=== PATIENT | female | born 1950 | race Caucasian/White ===

== ENCOUNTER 2019-08-14 02:14 | Emergency (ER) | payer MEDICARE, BC ==
[~2019-08-14] VITALS: Ht 157.5 cm; Wt 81.6 kg
--- NOTE | 2019-08-14 03:06 | NUR ---
CALLED PT IN WAITING ROOM. NO RESPONSE.
[2019-08-14 03:43] VITALS: BP 198/106
--- NOTE | 2019-08-14 03:43 | NUR ---
PT LORI C/C L SIDED FLANK PAIN SINCE 1AM, -DYSURIA, +HEMATURIA, "I THINK I PASSED ONE BUT THERE'S STILL PAIN". PT AMBULATORY WITH STEADY GAIT. RESP EVEN AND UNLABORED. PT ABLE TO PROVIDE URINE. PT ON MONITOR IN BED 11 WITH AT BEDSIDE. WILL CONTINUE TO MONITOR.
[2019-08-14] MEDS ORDERED: IV NS 0.9% 1,000 ML BAG IV ONE (04:00)
[2019-08-14] MEDS ORDERED: MORPHINE SULFATE INJ 2 MG/ML DISP.SYRIN IV ONE (04:00)
[2019-08-14] MEDS ORDERED: ONDANSETRON HCL/PF 4 MG/2 ML VIAL IVP ONE (04:00)
--- NOTE | 2019-08-14 04:00 | NUR ---
Shay grady in ED - 08/14/19 at 0406 by MADHU PT TAKEN TO RADIOLOGY VIA [facility]
[2019-08-14 04:01] LABS: APPEARANCE,URINE Slightly Cloudy (CLEAR); BILIRUBIN,URINE Negative (NEGATIVE); BLOOD, URINE Large Ery/uL (NEGATIVE); COLOR,URINE Yellow (YELLOW); KETONES,URINE Negative (NEGATIVE); LEUKOCYTE ESTERASE ,URINE Negative (NEGATIVE); NITRITE, URINE Negative (NEGATIVE); PH,URINE 8.5 (5.0-8.0); PROTEIN,URINE Negative (NEGATIVE); UGLUCOSE Negative (NEGATIVE); UROBILINOGEN,URINE 0.2 EU/dL (0.2)
--- NOTE | 2019-08-14 04:01 | NUR ---
BLOOD DRAWN AND GIVEN TO PHLEB
[2019-08-14] MEDS ORDERED: ONDANSETRON HCL/PF 4 MG/2 ML VIAL ONE (04:03)
[2019-08-14] MEDS ORDERED: MORPHINE SULFATE INJ 4 MG/ML DISP.SYRIN ONE (04:03)
[2019-08-14 04:06] LABS: BASOPHILS # (AUTO) 0.1 /CMM (0.0-0.2); BASOPHILS % (AUTO) 0.6 % (0.0-2.0); EOSINOPHILS % (AUTO) 0.4 % (0.0-6.0); HEMATOCRIT 42 % (33-45); LYMPHOCYTES # (AUTO) 1.3 /CMM (0.8-4.8); LYMPHOCYTES % (AUTO) 11.7 % (20.0-44.0); MEAN CORPUSCULAR HGB CONC 33 g/dl (31.0-36.0); MEAN CORPUSCULAR VOLUME 86 fL (82-100); MONOCYTES # (AUTO) 0.4 /CMM (0.1-1.30); MONOCYTES % (AUTO) 3.2 % (2.0-12.0); NEUTROPHILS # (AUTO) 9.3 /CMM (1.8-8.9); NEUTROPHILS % (AUTO) 84.1 % (43.0-81.0); PLATELET COUNT (AUTO) 254 /CMM (150-450); RED BLOOD CELL COUNT(AUTO) 4.86 MIL/uL (4.0-5.2)
--- NOTE | 2019-08-14 04:06 | NUR ---
PT TAKEN TO RADIOLOGY VIA [facility]
[2019-08-14 04:13] LABS: CALCIUM, SERUM 9.6 mg/dL (8.5-10.1); CREATININE 0.9 mg/dL (0.6-1.3); POTASSIUM 3.6 mmol/L (3.5-5.1)
--- NOTE | 2019-08-14 04:16 | NUR ---
PT RETURNED FROM RADIOLOGY. PT TOLERATED WELL.
[2019-08-14 05:23] LABS: BACTERIA,URINE None seen /HPF (None Seen); RBC,URINE 21-50 /HPF (0-2); SQUAMOUS EPITHELIAL CELL,UR Few /HPF (None Seen); WBC,URINE 0-2 /HPF (0-3)
--- NOTE | 2019-08-14 06:08 | NUR ---
IV removed. Catheter intact and site benign. Pressure and 4x4 applied to site. No bleeding noted.Patient discharged to home in stable condition. Written and verbal after care instructions given. Patient verbalizes understanding of instruction.
== END 2019-08-14 06:08 | disposition home or self-care (01) ==
LOC: ER 02:19
DX: N23 Unspecified renal colic (principal); Z87.442 Personal history of urinary calculi; Z98.890 Other specified postprocedural states
CPT/HCPCS: 36415; 74176; 80048; 81001; 85025; 96374; 96375; 99284; J2270; J2405; J7030; 81000-TC